=== PATIENT | male | born 1975 | race Caucasian/White ===

== ENCOUNTER 2017-06-16 16:02 | Emergency (ER) | payer OTHER ==
[2017-06-16] MEDS: ONDANSETRON (ODT) 4 MG TAB ODT (18:22)
[2017-06-16] MEDS: HYDROmorphONE 2 MG/ML SYG IM (18:22)
[2017-06-16] MEDS: ENOXAPARIN 100 MG/ML SYG SC (19:39)
[2017-06-16] MEDS: RIVAROXABAN 20 MG TABLET PO (19:50)
== END 2017-06-16 19:53 | disposition home or self-care (01) ==
LOC: FTE 16:02
DX: I82.492 Acute embolism and thrombosis of other specified deep vein of left lower extremity (principal); I10 Essential (primary) hypertension; F17.210 Nicotine dependence, cigarettes, uncomplicated; Z98.61 Coronary angioplasty status
CPT/HCPCS: 93971; 96372; 99285-25